=== PATIENT | female | born 1965 | race Caucasian/White ===

== ENCOUNTER 2019-04-15 21:11 | Emergency (ER) | payer MEDICAID ==
[~2019-04-15] VITALS: Ht 157.5 cm; Wt 136.1 kg
--- NOTE | 2019-04-15 21:11 | NUR ---
EKG given to Dr Ascencio.
[2019-04-15 21:12] VITALS: BP_SYST 156
--- NOTE | 2019-04-15 21:13 | NUR ---
Placed in room 01 . Placed on classroom monitor, blood pressure machine and pulse oximeter. To gown for exam. Side rails up.
--- NOTE | 2019-04-15 21:15 | NUR ---
Pt refusing IV at this time, pt states she does not want any needles, Dr Mooney notified
--- NOTE | 2019-04-15 21:17 | NUR ---
Dr Mooney at bedside examining patient
--- NOTE | 2019-04-15 21:20 | NUR ---
Pt A/A/O x 4, and clearly stated she does not want any needles related to IV and Lab blood draw
--- NOTE | 2019-04-15 21:25 | NUR ---
RT at bedside for breathing treatment, well tolerated.
[2019-04-15] MEDS ORDERED: MORPHINE 2 MG/ML INJ. SYRINGE IVP ONE (21:30)
[2019-04-15] MEDS ORDERED: ALBUTEROL SULFATE 0.083% 2.5 MG/3 ML VIAL.NEB INH ONE (21:30)
[2019-04-15] MEDS ORDERED: ASPIRIN 81 MG TAB.CHEW PO ONE (21:30)
[2019-04-15] MEDS ORDERED: ONDANSETRON HCL 4 MG/2 ML VIAL IVP ONE (21:30)
--- NOTE | 2019-04-15 21:34 | NUR ---
Dr Vanessa at bedside speaking to patient, pt continues refusing treatment at this time, states she wants to go home.
--- NOTE | 2019-04-15 22:00 | NUR ---
Patient does not wish to proceed with medical care recommended by Dr. Mooney. Patient given information related to possible complications, up to and including , which could occur as a result of leaving hospital at this time. Patient verbalizes understanding of risks involved leaving against medical advice. Patient has signed AMA form.
== END 2019-04-15 22:00 | disposition left against medical advice (07) ==
LOC: SED 21:11
DX: I49.9 Cardiac arrhythmia, unspecified (principal); R07.9 Chest pain, unspecified; E78.00 Pure hypercholesterolemia, unspecified; E11.9 Type 2 diabetes mellitus without complications; I10 Essential (primary) hypertension; F17.210 Nicotine dependence, cigarettes, uncomplicated
CPT/HCPCS: 82962; 93005; 94640; 99283; J7613